=== PATIENT | female | born 1980 | race Hispanic/Latino ===

== ENCOUNTER 2018-12-10 13:51 | Outpatient (CLI) | payer OTHER ==
--- NOTE | 2018-12-10 16:05 | XRay Report ---
CERVICAL SPINE 3 VIEWS INDICATION / CLINICAL INFORMATION: COSTOCHONDRAL PAIN R07.1. COMPARISON: None available. FINDINGS: The C7 vertebral body is not well-seen on the lateral view. No significant skeletal abnormality is se en in the visualized portions of the cervical spine. Alignment is normal. Signer Name: Braeden Rivera MD FACLeobardo Signed: 12/10/2018 4:00 PM Workstation Name: [id number]
--- NOTE | 2018-12-10 16:05 | XRay Report ---
LUMBAR SPINE 3 VIEWS INDICATION / CLINICAL INFORMATION: COSTOCHONDRAL PAIN R07.1. COMPARISON: None available. FINDINGS: Mild degenerative change at the thoracolumbar junction. No other significant skeletal abnormality. Al ignment is normal. Signer Name: Braeden Rivera MD FACR Signed: 12/10/2018 4:01 PM Workstation Name: [id number]
--- NOTE | 2018-12-26 10:06 | XRay Report ---
THORACIC SPINE, 3 VIEWS INDICATION: COSTOCHONDRAL PAIN. COMPARISON: None. IMPRESSION: There is suggestion of mild levocurvature to the lower thoracic spine which may be secon rimma to scoliosis or positioning of the patient. Mild multilevel degenerative disc disease is noted throughout the mid thoracic spine. No evidence for fracture, compression deformity or bone lesion. T he paravertebral soft tissues are unremarkable. The posterior ribs are intact. Signer Name: Wai Rojas Jr, MD Signed: 12/10/2018 3:57 PM Workstation Name: [id number]
== END 2018-12-10 13:52 | disposition home or self-care (01) ==
LOC: SPVIMAG 13:51
PROVIDERS: ATTEND Internal Medicine
DX: R07.1 Chest pain on breathing (principal); M47.815 Spondylosis without myelopathy or radiculopathy, thoracolumbar region
CPT/HCPCS: 72040; 72070; 72100; 72110